=== PATIENT | male | born 1960 | race Caucasian/White ===

== ENCOUNTER → 2019-06-03 12:20 | Outpatient (CLI) | payer OTHER, SELFPAY ==
--- NOTE | 2019-06-03 | DI.RAD.S_ITS ---
PROCEDURE: XR CERVICAL SPINE 2V OR 3V INDICATIONS: CERVICAL RADICULOPATHY TECHNIQUE: 3 view(s) of the cervical spine were acquired. COMPARISON: None. FINDINGS: Bones: No fractures or dislocations to the T1 level. The lateral masses of C1 appear intact on the odontoid view. No suspicious bony lesions. No acute compression fracture. Degenerative changes noted in the mid and lower cervical spine with disc space loss at C5-6 and C6-7 with associated endplate osteophyte formation. Mild bilateral facet arthrosis. Soft tissues: No prevertebral soft tissue swelling. IMPRESSION: Cervical spine without acute osseous abnormalities. Multilevel cervical spondylosis most pronounced in the mid and lower cervical spine. Dictated by: Elliott Medina M.D. on 06/03/2019 at 17:56 Approved by: Elliott Medina M.D. on 06/03/2019 at 17:58
== END ==
PROVIDERS: PCP Internal Medicine; Visit Provider Internal Medicine
DX: M47.22 Other spondylosis with radiculopathy, cervical region (principal)
CPT/HCPCS: 72040

== ENCOUNTER → 2019-07-09 17:34 | Outpatient (CLI) | payer OTHER, SELFPAY ==
--- NOTE | 2019-07-09 | DI.MRI.S_ITS ---
PROCEDURE: MR CERVICAL SPINE WO CON INDICATIONS: Neck pain. Left shoulder and arm radicular pain TECHNIQUE: Noncontrast sagittal T1 spin echo and T2 fast spin echo, sagittal STIR, foraminal oblique sagittal T2 fast spin echo, and axial gradient echo or T2 fast spin echo through the cervical spine. COMPARISON: [facility], CR, XR CERVICAL SPINE 2V OR 3V, 06/03/2019, 12:27. FINDINGS: Image quality: Excellent. Alignment and Curvature: There is loss of normal cervical lordosis. There is mild grade 1 anterolisthesis of C2 on C3. Mild grade 1 retrolisthesis of C3 on C4. Bone Marrow: Marrow demonstrates normal overall signal. Mild reactive signal within the endplates adjacent to the C3-C4, C4-C5, C5-C6, and C6-C7 intervertebral discs. Spinal Cord: Visualized spinal cord has normal size. There is a 2 mm diameter high T2 intensity focus within the central substance of the cord extending from the C5-C6 disc space level inferiorly to the superior C7 level. No cerebellar tonsillar herniation. Paraspinous Soft Tissues: No paravertebral masses. Prevertebral soft tissues are normal in thickness. C2-C3: Moderate disc desiccation. Mild diffuse disc bulge. Mild facet hypertrophy bilaterally. Mild left foraminal stenosis. No right foraminal stenosis. No canal stenosis. C3-C4: Moderate disc desiccation. Mild diffuse disc bulge. Mild facet and uncovertebral hypertrophy bilaterally. Mild canal stenosis. Moderate bilateral foraminal stenosis. C4-C5: Moderate disc desiccation. Mild diffuse disc bulge. Mild facet and uncovertebral hypertrophy bilaterally. Moderate to severe canal stenosis. Severe bilateral foraminal stenosis. Bilateral C5 nerve root compression. C5-C6: Moderate disc height loss and desiccation. Mild diffuse disc bulge. Mild facet and uncovertebral hypertrophy bilaterally. Moderate to severe canal stenosis. Minimal anterior cord flattening. Severe bilateral foraminal stenosis. Bilateral C6 nerve root compression. C6-C7: Moderate disc desiccation. Mild disc height loss. Moderate diffuse disc bulge. Mild bilateral facet and uncovertebral hypertrophy. Severe canal stenosis. Mild cord flattening. Severe left greater than right foraminal stenosis. Bilateral C7 nerve root compression. C7-T1: Disc desiccation. Bilateral mild facet hypertrophy. No significant canal stenosis. Mild bilateral foraminal stenosis. IMPRESSION: 1. Multilevel degenerative disc and facet disease, as well as uncovertebral hypertrophy. 2. Multilevel canal stenoses, worst at C5-C6 and C6-C7, where there is mild cord flattening. 3. Multilevel foraminal stenoses, worst at C4-C5, C5-C6, and C6-C7, where there is associated intraforaminal nerve root compression. Recommend correlation with clinical symptoms to ascertain relevance of this finding. 4. Small syrinx within the lower cervical cord. Dictated by: Zaina Larose M.D. on 07/10/2019 at 8:44 Approved by: Zaina Larose M.D. on 07/10/2019 at 8:53
== END ==
PROVIDERS: PCP Internal Medicine; Visit Provider Internal Medicine
DX: M50.11 Cervical disc disorder with radiculopathy, high cervical region (principal); M48.02 Spinal stenosis, cervical region
CPT/HCPCS: 72141

== ENCOUNTER → 2020-09-09 18:43 | Outpatient (ROUT) | payer OTHER, SELFPAY ==
[2020-09-09 18:59] LABS: Add Manual Diff / Slide Review NO; Basophils Absolute Auto 0 /uL (0-100); Basophils Percent Auto 0.6 % (0-2); Eosinophils Absolute Auto 100 /uL (0-450); Eosinophils Percent Auto 2.7 % (2-4); Hematocrit 45.7 % (41-53); Hemoglobin 15.5 g/dL (13.5-17.5); Lymphocytes Absolute Auto 700 /uL (1100-4500); Lymphocytes Percent Auto 19.1 % (25-40); Mean Corpuscular Hemoglobin 32.1 PG (26-34); Mean Corpuscular Volume 94.5 fL (80-100); Monocytes Absolute Auto 300 /uL (0-900); Monocytes Percent Auto 7.6 % (3-14); Neutrophils Absolute Auto 2700 /uL (1500-7000); Platelet Count 218 X10^3/uL (150-400); Red Blood Cell Count 4.84 X10^6/uL (4.5-5.9); Red Cell Distribution Width 13.5 % (11.6-14.8); White Blood Cell Count 3.9 X10^3/uL (4.5-11.0)
[2020-09-09 19:20] LABS: Alanine Aminotransferase 33 IU/L (<50); Albumin 4.6 g/dL (3.5-5.0); Albumin Globulin Ratio 1.8 (1.0-2.8); Alkaline Phosphatase 67 U/L (38-126); Aspartate Aminotransferase 31 IU/L (17-59); BUN Creatinine Ratio 20.7 (6-22); Bilirubin Total 0.5 mg/dL (0.2-1.3); Blood Urea Nitrogen 24 mg/dL (9-20); Calcium 10.1 mg/dL (8.4-10.2); Carbon Dioxide 30 mmol/L (22-32); Chloride 104 mmol/L (98-107); Cholesterol 181 mg/dL (140-199); Estimated Glomerular Filt Rate > 60.0 mL/min (>60); Globulin 2.6 g/dL (1.7-4.1); Glucose 91 mg/dL (80-110); HDL Cholesterol 96 mg/dL (40-60); HEMOLYSIS < 15 (0-50); LDL Cholesterol Calculated 65 mg/dL (<100); Potassium 4.1 mmol/L (3.4-5.1); Sodium 140 mmol/L (137-145); Total Protein 7.2 g/dL (6.3-8.2); Triglycerides 98 mg/dL (35-150)
[2020-09-09 19:49] LABS: Prostate Specific Antigen 1.41 ng/mL (0.10-4.00); TSH w/ Reflex to FT4 2.06 uIU/mL (0.47-4.68)
== END ==
PROVIDERS: PCP Internal Medicine; Visit Provider Internal Medicine
DX: Z00.00 Encounter for general adult medical examination without abnormal findings (principal); E03.9 Hypothyroidism, unspecified; R53.83 Other fatigue
CPT/HCPCS: 80053; 80061; 84153; 84443; 85025

== ENCOUNTER 2020-10-26 08:40 | Emergency (ER) | payer OTHER, SELFPAY ==
[2020-10-26 08:43] VITALS: BP 134/80; PULSE 75; RESP 16; TEMP 35.8; O2SAT 97
--- NOTE | 2020-10-26 08:45 | DI.CT.S_ITS ---
PROCEDURE: CT KIDNEY URETER BLADDER (KUB) INDICATIONS: left flank TECHNIQUE: Noncontrast 5 mm thick sections acquired from the diaphragms to the symphysis. 5 mm thick coronal and sagittal reformats were then performed. For radiation dose reduction, the following was used: automated exposure control, adjustment of mA and/or kV according to patient size. COMPARISON: 3. Appendix [facility], CT, ABDOMEN/PELVIS WITH CONTRAST, 06/13/2009, 9:09. t FINDINGS: Image quality: Excellent. Lung bases: Lung bases are clear. Heart size is normal. Urinary system: Both kidneys are normal in size. No kidney stones. No hydronephrosis or perinephric fat stranding. Both ureters appear non-dilated throughout their expected courses. Bladder wall thickness is normal; no calcified bladder stones. Other solid organs: Liver is normal in size. Gallbladder is within normal limits on noncontrast imaging . Pancreas is normal in contours. Spleen is normal in size. No adrenal nodules. Peritoneum and bowel: Unenhanced bowel loops demonstrate normal wall thickness and caliber. No free fluid or air. Appendix not seen. No evidence of appendicitis. Nodes and vessels: No retroperitoneal or mesenteric adenopathy by size criteria. Mildly prominent mesenteric lymph nodes are present. Aorta and inferior vena cava are normal in caliber. Abdominal wall: No ventral hernias. Pelvis: No free pelvic fluid. No inguinal hernias or adenopathy. Bones: No suspicious bony lesions. No vertebral body compression fractures. IMPRESSION: 1. No evidence of urinary tract calcification, nor obstruction. 2. Mildly prominent mesenteric lymph nodes, suggestive of mesenteric adenitis in the appropriate clinical setting. 3. Appendix not seen. No evidence of appendicitis. Dictated by: Zaina Larose M.D. on 10/26/2020 at 9:57 Approved by: Zaina Larose M.D. on 10/26/2020 at 10:00
--- NOTE | 2020-10-26 08:57 | ED_ITS ---
HPI - Back Pain/Injury General Chief Complaint: Back Pain/Injury Stated Complaint: Back pain Time Seen by Provider: 10/26/20 08:45 Source: patient and EMS Mode of arrival: EMS Limitations: no limitations History of Present Illness HPI Narrative: Patient is a 60-year-old male who presents with left flank pain. He has been having some thoracic pain off and on for about 2 months she has had MRIs done he has had a dull left lower lumbar pain but this morning it became unbearable. It is actually in his flank area and occasionally radiates to his abdomen. He said this morning he was in tears. He has previously had some numbness tingling in his left leg but does not have currently. He denies any change in bowel bladder habits. He checks his temperature regularly he denies any fever. He has not noted any blood in his urine. MD Complaint: back pain Location: lumbar spine and thoracic spine Related Data Home Medications Medication Instructions Recorded Confirmed levothyroxine 88 mcg PO QAM 10/26/20 10/26/20 Previous Rx's Medication Instructions Recorded cyclobenzaprine 5 mg PO TID PRN #10 tab 10/26/20 Allergies Allergy/AdvReac Type Severity Reaction Status Date / Time No Known Drug Allergies Allergy Verified 10/26/20 09:21 Review of Systems Review of Systems Narrative: GENERAL: Denies chills, fatigue, malaise, fever, sweats, travel HEENT: Denies sinus pain, ear pain, sore throat, difficulty swallowing, neck mariola n RESPIRATORY: Denies dyspnea, cough, wheezing, hemoptysis, sputum. CARDIOVASCULAR: Denies chest pain, palpitations, orthopnea, edema GASTROINTESTINAL: Denies nausea, vomiting, abdominal pain, diarrhea, constipation, melena. : Denies dysuria, frequency, incontinence, hematuria, urinary retention, flank pain. MUSCULOSKELETAL: Leg see HPI SKIN: No rash, no erythema, no pruritus NEUROLOGIC: Denies weakness, dizziness, headache, numbness, change in speech, confusion PSYCHIATRIC: No concerning psychosocial issues. 12 point review of systems is negative except for those stated above and HPI Patient History Medical History Hypothyroid Exam Initial Vital Signs Initial Vital Signs: Vital Signs Temperature 96.5 F L 10/26/20 08:43 Pulse Rate 75 10/26/20 08:43 Respiratory Rate 16 10/26/20 08:43 Blood Pressure 134/80 10/26/20 08:43 Pulse Oximetry 97 10/26/20 08:43 GENERAL: Well-appearing, well-nourished and in no acute distress. HEENT: Head atraumatic,EOMI, pupils reactive, face symmetric, moist mucous membranes CARDIOVASCULAR: Regular rate and rhythm without murmurs, rubs or gallops. RESPIRATORY: Breath sounds equal bilaterally, no wheezes rales or rhonchi. ABDOMEN: Soft, nontender. Normoactive bowel sounds all 4 quadrants. No guarding or rebound. : left CVA tenderness EXTREMITIES: Normal range of motion, no clubbing or edema. Neurovascularly intact NEUROLOGICAL: Alert and oriented x4. Sensation in lower extremities intact no focal deficits SKIN: Warm, dry, no laceration, no petechiae, no rashes or lesions. Course Orders Ordered: ED Orders 10/26/20 08:45 CT kidney ureter bladder (KUB) Stat 10/26/20 09:00 Complete Blood Count AUTO DIFF Stat Comprehensive Metabolic Panel Stat Lipase Stat Discontinued Medications Cyclobenzaprine HCl (Cyclobenzaprine 5 Mg Tablet) 5 mg PO NOW ONE Stop: 10/26/20 10:29 Last Admin: 10/26/20 10:35 Dose: 5 mg Documented by: DELON Ketorolac Tromethamine (Ketorolac 60 Mg/2 Ml Vial) 30 mg IV NOW ONE Stop: 10/26/20 08:46 Last Admin: 10/26/20 09:05 Dose: 30 mg Documented by: ELENA Morphine Sulfate (Morphine 2 Mg/Ml Inj) 2 mg IV NOW ONE Stop: 10/26/20 10:30 Last Admin: 10/26/20 10:35 Dose: 2 mg Documented by: BTONER Vital Signs Vital signs: Vital Signs - 8 hr 10/26/20 08:43 10/26/20 09:09 10/26/20 09:30 Temperature 96.5 F L Pulse Rate 75 64 63 Respiratory Rate 16 Blood Pressure 134/80 Pulse Oximetry 97 100 100 10/26/20 09:52 10/26/20 10:00 10/26/20 11:17 Temperature Pulse Rate 62 63 61 Respiratory Rate 20 20 Blood Pressure 145/63 H 129/63 143/74 H Pulse Oximetry 100 100 100 MDM - Back Pain/Injury Lab Data Attestation: I reviewed the patient's lab results. Result diagrams: 10/26/20 09:00 10/26/20 09:00 Labs: Lab Results 10/26/20 10/26/20 Range/Units 09:00 09:00 WBC 3.1 L (4.5-11.0) X10^3/uL RBC 5.01 (4.5-5.9) X10^6/uL Hgb 16.4 (13.5-17.5) g/dL Hct 46.3 (41-53) % MCV 92.5 (80-100) fL MCH 32.8 (26-34) PG MCHC 35.4 (30-36) % RDW 13.4 (11.6-14.8) % Plt Count 198 (150-400) X10^3/uL Neut % (Auto) 59.5 (50-75) % Lymph % (Auto) 25.5 (25-40) % Dougherty % (Auto) 9.9 (3-14) % Eos % (Auto) 3.9 (2-4) % Baso % (Auto) 1.2 (0-2) % Neut # (Auto) 1800 (4123-6740) /uL Lymph # (Auto) 800 L (4009-3609) /uL Dougherty # (Auto) 300 (0-900) /uL Eos # (Auto) 100 (0-450) /uL Baso # (Auto) 0 (0-100) /uL Sodium 138 (137-145) mmol/L Potassium 3.7 (3.4-5.1) mmol/L Chloride 106 (98-107) mmol/L Carbon Dioxide 25 (22-32) mmol/L BUN 26 H (9-20) mg/dL Creatinine 1.29 H (0.66-1.25) mg/dL Estimated GFR 56.6 L (>60) mL/min BUN/Creatinine Ratio 20.2 (6-22) Glucose 109 (80-110) mg/dL Calcium 10.1 (8.4-10.2) mg/dL Total Bilirubin 0.6 (0.2-1.3) mg/dL AST 34 (17-59) IU/L ALT 37 (<50) IU/L Alkaline Phosphatase 63 (38-126) U/L Total Protein 7.3 (6.3-8.2) g/dL Albumin 4.6 (3.5-5.0) g/dL Globulin 2.7 (1.7-4.1) g/dL Albumin/Globulin Ratio 1.7 (1.0-2.8) Lipase 292 (23-300) U/L Urine Dip Bedside Urine Glucose Negative Bedside Urine Bilirubin - Negative Bedside Urine Ketone - Negative Urine Specific [place] 1.015 Bedside Urine Occult Blood - Negative Bedside Urine pH 8.0 Bedside Urine Protein - Negative Bedside Urine Urobilinogen - Negative Bedside Urine Nitrite - Negative Bedside Urine Leukocytes - Negative Esterase Imaging Data CT scan - abdomen/pelvis: Radiologist's Impression: PROCEDURE: CT KIDNEY URETER BLADDER (KUB) INDICATIONS: left flank TECHNIQUE: Noncontrast 5 mm thick sections acquired from the diaphragms to the symphysis. 5 mm thick coronal and sagittal reformats were then performed. For radiation dose reduction, the following was used: automated exposure control, adjustment of mA and/or kV according to patient size. COMPARISON: 3. [facility], CT, ABDOMEN/PELVIS WITH CONTRAST, 06/13/2009, 9:09. t FINDINGS: Image quality: Excellent. Lung bases: Lung bases are clear. Heart size is normal. Urinary system: Both kidneys are normal in size. No kidney stones. No hydronephrosis or perinephric fat stranding. Both ureters appear non-dilated throughout their expected courses. Bladder wall thickness is normal; no calcified bladder stones. Other solid organs: Liver is normal in size. Gallbladder is within normal limits on noncontrast imaging . Pancreas is normal in contours. Spleen is normal in size. No adrenal nodules. Peritoneum and bowel: Unenhanced bowel loops demonstrate normal wall thickness and caliber. No free fluid or air. Appendix not seen. No evidence of obed endicitis. Nodes and vessels: No retroperitoneal or mesenteric adenopathy by size criteria. Mildly prominent mesenteric lymph nodes are present. Aorta and inferior vena cava are normal in caliber. Abdominal wall: No ventral hernias. Pelvis: No free pelvic fluid. No inguinal hernias or adenopathy. Bones: No suspicious bony lesions. No vertebral body compression fractures. IMPRESSION: 1. No evidence of urinary tract calcification, nor obstruction. 2. Mildly prominent mesenteric lymph nodes, suggestive of mesenteric adenitis in the appropriate clinical setting. 3. Appendix not seen. No evidence of appendicitis. Dictated by: Zaina Larose M.D. on 10/26/2020 at 9:57 MDM Narrative Medical decision making narrative: Initially patient has some left flank pain concern for possible kidney stone versus muscle spasm. Pain does seem to be worse with movement. Blood was given CT confirm no kidney stone. Patient has been having ongoing low back pain is which seems to be exacerbated worse with movement consistent with muscle spasm. Patient was still having pain after Toradol. He is given a dose of Flexeril and morphine at which point he is able to stand and ambulate out of the emergenc y department. Discharge Plan Departure Patient Disposition: Home Clinical Impression: Acute exacerbation of chronic low back pain Instructions: DI for Low Back Pain Activity Restrictions/Additional Instructions: *You have been diagnosed with low back pain *What to do: Increase activity as tolerated recommend light activity with stretching. No strenuous activity or heavy lifting. Heating pad to 20 a 30 minutes at a time *Continue to take medications as directed Ibuprofen 600 mg every 6 to 8 hours if needed for [id number] pain Flexeril 5 mg every 8 hours if needed for muscle spasm--> SENT TO [facility] *Follow up with your primary care provider in 2-3 days *Return to ER if you should have increasing back pain, weakness in lower extremities, change in bowel or bladder habits or any new, worsening or concerning symptoms Prescriptions: New cyclobenzaprine 5 mg tablet 5 mg PO TID PRN (Reason: muscle spasm) Qty: 10 RF: 0 No Action levothyroxine 88 mcg tablet 88 mcg PO QAM RF: 0 Referrals: Cristian Freire MD [Primary Care Provider] -
[2020-10-26] MEDS: KETOROLAC 60 MG/2 ML VIAL 30 MG IV (09:05)
[2020-10-26 09:09] VITALS: PULSE 64; O2SAT 100
[2020-10-26 09:11] LABS: Add Manual Diff / Slide Review NO; Basophils Absolute Auto 0 /uL (0-100); Basophils Percent Auto 1.2 % (0-2); Eosinophils Absolute Auto 100 /uL (0-450); Eosinophils Percent Auto 3.9 % (2-4); Hematocrit 46.3 % (41-53); Hemoglobin 16.4 g/dL (13.5-17.5); Lymphocytes Absolute Auto 800 /uL (1100-4500); Lymphocytes Percent Auto 25.5 % (25-40); Mean Corpuscular HGB Conc 35.4 % (30-36); Mean Corpuscular Hemoglobin 32.8 PG (26-34); Mean Corpuscular Volume 92.5 fL (80-100); Monocytes Absolute Auto 300 /uL (0-900); Monocytes Percent Auto 9.9 % (3-14); Neutrophils Absolute Auto 1800 /uL (1500-7000); Neutrophils Percent Auto 59.5 % (50-75); Platelet Count 198 X10^3/uL (150-400); Red Blood Cell Count 5.01 X10^6/uL (4.5-5.9); Red Cell Distribution Width 13.4 % (11.6-14.8); White Blood Cell Count 3.1 X10^3/uL (4.5-11.0)
[2020-10-26 09:22] LABS: Alanine Aminotransferase 37 IU/L (<50); Albumin 4.6 g/dL (3.5-5.0); Albumin Globulin Ratio 1.7 (1.0-2.8); Alkaline Phosphatase 63 U/L (38-126); Aspartate Aminotransferase 34 IU/L (17-59); BUN Creatinine Ratio 20.2 (6-22); Bilirubin Total 0.6 mg/dL (0.2-1.3); Blood Urea Nitrogen 26 mg/dL (9-20); Calcium 10.1 mg/dL (8.4-10.2); Carbon Dioxide 25 mmol/L (22-32); Chloride 106 mmol/L (98-107); Estimated Glomerular Filt Rate 56.6 mL/min (>60); Globulin 2.7 g/dL (1.7-4.1); Glucose 109 mg/dL (80-110); HEMOLYSIS < 15 (0-50); Lipase 292 U/L (23-300); Potassium 3.7 mmol/L (3.4-5.1); Sodium 138 mmol/L (137-145); Total Protein 7.3 g/dL (6.3-8.2)
[2020-10-26 09:30] VITALS: PULSE 63; O2SAT 100
[2020-10-26 09:52] VITALS: BP 145/63; PULSE 62; O2SAT 100
[2020-10-26 10:00] VITALS: BP 129/63; PULSE 63; RESP 20; O2SAT 100
--- NOTE | 2020-10-26 10:29 | PC.NURSE ---
pt attempted to stand. pt did get up to his feet. pt immediately sat back down, states he doesn't think can walk because standing is painful. reported to dr. hernandez, orders rec'd and noted.
[2020-10-26] MEDS: MORPHINE 2 MG/ML INJ IV (10:35)
[2020-10-26] MEDS: CYCLOBENZAPRINE 5 MG TABLET PO (10:35)
[2020-10-26 11:17] VITALS: BP 143/74; PULSE 61; RESP 20; O2SAT 100
== END 2020-10-26 11:20 | disposition home or self-care (01) ==
PROVIDERS: Emergency Provider Emergency Medicine; PCP Internal Medicine; Referring Provider Emergency Medicine
DX: M54.5 Low back pain (principal); E03.9 Hypothyroidism, unspecified
CPT/HCPCS: 36415; 74176; 80053; 81003; 83690; 85025; 96374; 96375; 99283; 99284; J1885; J2270

== ENCOUNTER → 2021-08-11 08:35 | Outpatient (CLI) | payer OTHER, SELFPAY ==
--- NOTE | 2021-08-11 08:36 | DI.RAD.S_ITS ---
PROCEDURE: XR KNEE RT 3V INDICATIONS: right knee pain TECHNIQUE: 3 views of the knee were acquired. COMPARISON: None. FINDINGS: Bones: No fractures or dislocations. No suspicious bony lesions. Soft tissues: No joint effusion. No suspicious soft tissue calcifications. IMPRESSION: No acute fracture. No osseous lesion. If symptoms and/or clinical suspicion for pathology persist, further assessment with repeat, or advanced imaging (e.g., CT, MRI, or bone scan) may be helpful for further assessment. Dictated by: Zaina Larose M.D. on 08/11/2021 at 8:44 Approved by: Zaina Larose M.D. on 08/11/2021 at 8:50
== END ==
PROVIDERS: PCP Internal Medicine; Referring Provider Physician Assistant; Visit Provider Physician Assistant
DX: M25.561 Pain in right knee (principal)
CPT/HCPCS: 73562

== ENCOUNTER → 2021-08-30 09:45 | Outpatient (CLI) | payer OTHER, SELFPAY ==
--- NOTE | 2021-08-30 | DI.MRI.S_ITS ---
PROCEDURE: MR KNEE RT WO CON INDICATIONS: Unspecified injury of right lower leg, initial encounter TECHNIQUE: Noncontrast sagittal PD fast spin echo and T2 fast spin echo with fat saturation, sagittal 3-D FLASH with fat saturation; coronal T1 spin echo and PD fast spin echo with fat saturation, and axial PD fast spin echo with fat saturation through the knee. COMPARISON: [facility], CR, XR KNEE RT 3V, 08/11/2021, 8:30. FINDINGS: Image quality: Excellent. Menisci: The medial meniscus is intact. There is complex tear involving anterior horn, body and posterior horn of lateral meniscus extending to both superior and inferior articulating surfaces. The meniscal root ligaments appear intact. Cruciate ligaments: The anterior and posterior cruciate ligaments appear intact. Medial structures: The medial collateral ligament appears intact. The posterior oblique ligament, semimembranosus tendon insertions, oblique popliteal ligament, and meniscocapsular junction appear intact. Visualized portions of the pes anserinus tendons appear normal. No abnormal bursal fluid. Lateral structures: Low-grade proximal LCL sprain/partial-thickness tear near its femoral insertion is seen. The long and short heads of the biceps femoris tendon appear intact. There is signal abnormality involving lateral portion of proximal popliteus muscle near musculotendinous junction concerning for low-grade partial-thickness tear. The arcuate and fabellofibular ligaments appear intact, on either side of the lateral inferior geniculate artery. Iliotibial band appears normal. Anterior structures: The quadriceps and patellar tendons appear intact. Patellar alignment is normal. No femoral trochlear dysplasia or ventral trochlear prominence. No edema in the infrapatellar fat pad. Bones and cartilage: No bone marrow contusions or fractures. Mild tricompartmental osteoarthritis and low to moderate grade chondromalacia is seen most prominent involving patellofemoral compartment with small osteochondral injuries seen in lateral aspect of posterior patella near apex. Joint space: There is small to moderate joint effusion. No Moraes's cyst. Normal appearing synovial plicae are incidentally noted. IMPRESSION: 1. Suggestion of complex tear involving anterior horn, body and posterior horn of lateral meniscus extending to both superior and inferior articulating surfaces. No evidence of focal medial meniscal tear. 2. Low-grade lateral collateral ligament sprain near its femoral insertion. MCL is intact. Anterior and posterior cruciate ligaments are intact. 3. Mild tricompartmental osteoarthritis and low to moderate grade chondromalacia most prominent involving patellofemoral compartment as above. No fracture or dislocation. Small to moderate joint effusion. 4. Signal abnormality involving lateral periphery of proximal popliteus muscle near musculotendinous junction concerning for low-grade partial-thickness tear. Popliteus tendon is intact. Dictated by: Joseluis Varela M.D. on 08/30/2021 at 10:23 Approved by: Joseluis Varela M.D. on 08/30/2021 at 10:46
== END ==
PROVIDERS: PCP Internal Medicine; Referring Provider Internal Medicine; Visit Provider Internal Medicine
DX: S83.281A Other tear of lateral meniscus, current injury, right knee, initial encounter (principal); S83.421A Sprain of lateral collateral ligament of right knee, initial encounter; M17.11 Unilateral primary osteoarthritis, right knee; M22.41 Chondromalacia patellae, right knee; M25.461 Effusion, right knee; X58.XXXA Exposure to other specified factors, initial encounter
CPT/HCPCS: 73721

== ENCOUNTER → 2022-08-06 12:28 | Outpatient (CLI) | payer OTHER, SELFPAY ==
[2022-08-06 14:04] LABS: Hematocrit 44.2 % (41-53); Hemoglobin 15.2 g/dL (13.5-17.5); Mean Corpuscular HGB Conc 34.4 % (30-36); Mean Corpuscular Hemoglobin 32.2 PG (26-34); Mean Corpuscular Volume 93.6 fL (80-100); Platelet Count 237 X10^3/uL (150-400); Red Blood Cell Count 4.72 X10^6/uL (4.5-5.9); Red Cell Distribution Width 13.2 % (11.6-14.8); White Blood Cell Count 3.4 X10^3/uL (4.5-11.0)
[2022-08-06 14:18] LABS: Alanine Aminotransferase 42 IU/L (<50); Albumin 4.6 g/dL (3.5-5.0); Albumin Globulin Ratio 1.6 (1.0-2.8); Alkaline Phosphatase 66 U/L (38-126); Aspartate Aminotransferase 29 IU/L (17-59); BUN Creatinine Ratio 16.2 (6-22); Bilirubin Total 0.6 mg/dL (0.2-1.3); Blood Urea Nitrogen 19 mg/dL (9-20); Calcium 9.5 mg/dL (8.4-10.2); Carbon Dioxide 29 mmol/L (22-32); Chloride 103 mmol/L (98-107); Cholesterol 169 mg/dL (140-199); Estimated Glomerular Filt Rate > 60 mL/min (>60); Globulin 2.9 g/dL (1.7-4.1); Glucose 102 mg/dL (80-110); HDL Cholesterol 65 mg/dL (40-60); HEMOLYSIS < 15 (0-50); LDL Cholesterol Calculated 93 mg/dL (<100); Potassium 4.3 mmol/L (3.4-5.1); Sodium 140 mmol/L (137-145); Total Protein 7.5 g/dL (6.3-8.2); Triglycerides 54 mg/dL (35-150)
[2022-08-06 14:43] LABS: Prostate Specific Antigen 1.43 ng/mL (0.10-4.00)
[2022-08-06 15:04] LABS: TSH w/ Reflex to FT4 1.43 uIU/mL (0.47-4.68)
== END ==
PROVIDERS: PCP Internal Medicine; Referring Provider Internal Medicine; Visit Provider Internal Medicine
DX: Z00.00 Encounter for general adult medical examination without abnormal findings (principal); E03.9 Hypothyroidism, unspecified; E78.2 Mixed hyperlipidemia
CPT/HCPCS: 36415; 80053; 80061; 84153; 84443; 85027

== ENCOUNTER → 2023-09-19 08:39 | Outpatient (CLI) | payer OTHER, SELFPAY ==
[2023-09-19 09:52] LABS: Aspartate Aminotransferase 33 IU/L (17-59); Blood Urea Nitrogen 26 mg/dL (9-20); Carbon Dioxide 29 mmol/L (22-32); Chloride 102 mmol/L (98-107); Cholesterol 192 mg/dL (140-199); Estimated Glomerular Filt Rate > 60 mL/min (>60); Glucose 101 mg/dL (80-110); HDL Cholesterol 76 mg/dL (40-60); HEMOLYSIS < 15 (0-50); LDL Cholesterol Calculated 104 mg/dL (<100); Potassium 4.3 mmol/L (3.4-5.1); Sodium 137 mmol/L (137-145); Triglycerides 62 mg/dL (35-150)
[2023-09-19 10:22] LABS: Prostate Specific Antigen Scrn 1.49 ng/mL (0.1-4.0)
[2023-09-19 10:25] LABS: TSH w/ Reflex to FT4 4.37 uIU/mL (0.47-4.68)
== END ==
PROVIDERS: PCP Internal Medicine; Referring Provider Internal Medicine; Visit Provider Internal Medicine
DX: Z12.5 Encounter for screening for malignant neoplasm of prostate (principal); E78.2 Mixed hyperlipidemia; E03.9 Hypothyroidism, unspecified
CPT/HCPCS: 36415; 80048; 80061; 84443; 84450; G0103

== ENCOUNTER → 2023-10-02 10:05 | Outpatient (CLI) | payer OTHER, SELFPAY ==
--- NOTE | 2023-10-02 10:09 | DI.CT.S_ITS ---
PROCEDURE: CT HEAD/BRAIN WO/W CON INDICATIONS: right upper lip paresthesia, rule out mass/neoplasm TECHNIQUE: 4.5 mm thick angled axial sections acquired from the foramen magnum to the vertex before and after the administration of intravenous contrast, with coronal and sagittal reformats. For radiation dose reduction, the following was used: automated exposure control, adjustment of mA and/or kV according to patient size. COMPARISON: [facility], MR, MR BRAIN WITHOUT CONTRAST, 06/01/2020, 16:09. FINDINGS: Image quality: Excellent. CSF Spaces: Basal cisterns are patent. No extra-axial fluid collections. Ventricles are normal in size and shape. Brain: No midline shift. No intracranial bleeds or masses. No abnormal intracranial enhancement. Devlin-white interface appears normal. Skull and face: Calvarium and visualized facial bones appear intact, without suspicious lesions. Sinuses: Visualized sinuses and mastoids are clear. IMPRESSION: No acute intracranial abnormalities. No abnormal intracranial enhancement or masses identified. Dictated by: Harris Car M.D. on 10/02/2023 at 12:51 Approved by: Harris Car M.D. on 10/02/2023 at 12:54
== END ==
LOC: CT 10:06
PROVIDERS: PCP Internal Medicine; Referring Provider Internal Medicine; Visit Provider Internal Medicine
DX: D32.9 Benign neoplasm of meninges, unspecified (principal); R20.2 Paresthesia of skin
CPT/HCPCS: 70470; Q9967

== ENCOUNTER → 2024-10-07 09:08 | Outpatient (CLI) | payer MEDICARE, SELFPAY ==
[2024-10-07 09:53] LABS: Aspartate Aminotransferase 35 IU/L (17-59); BUN Creatinine Ratio 20.1 (6-22); Blood Urea Nitrogen 27 mg/dL (9-20); Carbon Dioxide 29 mmol/L (22-32); Chloride 104 mmol/L (98-107); Cholesterol 191 mg/dL (140-199); Estimated Glomerular Filt Rate 59 mL/min (>60); Glucose 100 mg/dL (80-110); HDL Cholesterol 78 mg/dL (40-60); HEMOLYSIS < 15 (0-50); LDL Cholesterol Calculated 99 mg/dL (<100); Sodium 138 mmol/L (137-145); Triglycerides 69 mg/dL (35-150)
[2024-10-07 10:20] LABS: Prostate Specific Antigen 1.64 ng/mL (0.10-4.00); TSH w/ Reflex to FT4 2.73 uIU/mL (0.47-4.68)
== END ==
PROVIDERS: PCP Internal Medicine; Referring Provider Internal Medicine; Visit Provider Internal Medicine
DX: E03.9 Hypothyroidism, unspecified (principal); N40.1 Benign prostatic hyperplasia with lower urinary tract symptoms; E78.2 Mixed hyperlipidemia; N13.8 Other obstructive and reflux uropathy
CPT/HCPCS: 36415; 80048; 80061; 84153; 84443; 84450

== ENCOUNTER → 2024-12-24 15:29 | Outpatient (CLI) | payer MEDICARE, SELFPAY ==
[2024-12-24 16:22] LABS: Appearance Urine UA CLEAR; Bilirubin Urine UA NEGATIVE (NEGATIVE); Color Urine UA YELLOW; Glucose Urine UA NEGATIVE (Negative); Ketones Urine UA NEGATIVE (NEGATIVE); Leukocyte Esterase Urine UA NEGATIVE (NEGATIVE); Nitrite Urine UA NEGATIVE (Negative); Occult Blood Urine UA NEGATIVE (Negative); Protein Urine UA NEGATIVE (Negative); Specific Gravity Urine UA <=1.005 (1.000-1.035); Urobilinogen Urine UA 0.2 E.U./dL (0.2); pH Urine UA 6.5 (4.5-8.0)
[2024-12-24 16:22] LABS: Hematocrit 43.2 % (41-53); Mean Corpuscular HGB Conc 34.7 % (30-36); Mean Corpuscular Hemoglobin 32.4 PG (26-34); Mean Corpuscular Volume 93.6 fL (80-100); Platelet Count 190 X10^3/uL (150-400); Red Blood Cell Count 4.62 X10^6/uL (4.5-5.9); Red Cell Distribution Width 13.7 % (11.6-14.8)
[2024-12-24 16:29] LABS: Urine Volume 10mL (spun)
[2024-12-24 16:30] LABS: Bacteria Urine Occasional (0-1); Culture Indicated Urine Cult Not Indicated; RBC Urine None Seen (0-5/HPF); Squamous Epithelial Cell Urine None Seen (0-5/HPF); WBC Urine None Seen (0-5/HPF)
[2024-12-24 16:49] LABS: Alanine Aminotransferase 31 IU/L (<50); Albumin 4.7 g/dL (3.5-5.0); Alkaline Phosphatase 60 U/L (38-126); Aspartate Aminotransferase 30 IU/L (17-59); BUN Creatinine Ratio 16.5 (6-22); Bilirubin Total 0.6 mg/dL (0.2-1.3); Blood Urea Nitrogen 23 mg/dL (9-20); Calcium 10.1 mg/dL (8.4-10.2); Carbon Dioxide 28 mmol/L (22-32); Chloride 102 mmol/L (98-107); Estimated Glomerular Filt Rate 56 mL/min (>60); Globulin 2.4 g/dL (1.7-4.1); Glucose 101 mg/dL (80-110); HEMOLYSIS < 15 (0-50); Potassium 4.7 mmol/L (3.4-5.1); Sodium 138 mmol/L (137-145); Total Protein 7.1 g/dL (6.3-8.2)
== END ==
PROVIDERS: PCP Internal Medicine; Referring Provider Internal Medicine; Visit Provider Internal Medicine
DX: R10.32 Left lower quadrant pain (principal)
CPT/HCPCS: 36415; 80053; 81001; 85027

== ENCOUNTER → 2025-01-25 09:12 | Outpatient (CLI) | payer MEDICARE, SELFPAY ==
[2025-01-25 10:29] LABS: Hematocrit 46.2 % (41-53); Hemoglobin 15.8 g/dL (13.5-17.5); Mean Corpuscular HGB Conc 34.3 % (30-36); Mean Corpuscular Hemoglobin 32.5 PG (26-34); Mean Corpuscular Volume 94.9 fL (80-100); Platelet Count 177 X10^3/uL (150-400); Red Blood Cell Count 4.86 X10^6/uL (4.5-5.9); Red Cell Distribution Width 13.9 % (11.6-14.8); White Blood Cell Count 2.7 X10^3/uL (4.5-11.0)
[2025-01-25 10:46] LABS: Alanine Aminotransferase 47 IU/L (<50); Albumin 4.8 g/dL (3.5-5.0); Alkaline Phosphatase 61 U/L (38-126); Aspartate Aminotransferase 35 IU/L (17-59); BUN Creatinine Ratio 17.5 (6-22); Bilirubin Total 0.8 mg/dL (0.2-1.3); Blood Urea Nitrogen 21 mg/dL (9-20); Carbon Dioxide 27 mmol/L (22-32); Chloride 103 mmol/L (98-107); Estimated Glomerular Filt Rate > 60 mL/min (>60); Globulin 2.4 g/dL (1.7-4.1); Glucose 104 mg/dL (70-99); HEMOLYSIS < 15 (0-50); Sodium 137 mmol/L (137-145); Total Protein 7.2 g/dL (6.3-8.2)
== END ==
PROVIDERS: PCP Internal Medicine; Referring Provider Internal Medicine; Visit Provider Internal Medicine
DX: R10.32 Left lower quadrant pain (principal)
CPT/HCPCS: 36415; 80053; 85027

== ENCOUNTER → 2025-01-29 07:40 | Outpatient (CLI) | payer MEDICARE, SELFPAY ==
--- NOTE | 2025-01-29 07:41 | DI.CT.S_ITS ---
PROCEDURE: CT ABDOMEN PELVIS W CON INDICATIONS: LLQ abd pain TECHNIQUE: After the administration of intravenous contrast, axial sections acquired from the lung bases to the pubic symphysis. Coronal and sagittal reformats were performed. For radiation dose reduction, the following was used: automated exposure control, adjustment of mA and/or kV according to patient size. COMPARISON: [facility], CT, CT KIDNEY URETER BLADDER (KUB), 10/26/2020, 9:44. FINDINGS: Image quality: Diagnostic. Lower Chest: No significant findings. ABDOMEN: Liver: No solid mass. Diffuse steatosis. Gallbladder: No radiopaque gallstones or wall thickening. Biliary ducts: No biliary dilation. Pancreas: No ductal dilation. Spleen: Size is within normal limits. Adrenal Glands: No adrenal nodules. Kidneys and Ureters: No hydronephrosis. No solid mass. No complex renal cystic lesion which requires follow up. Stomach and Bowel: Nonobstructive gas pattern. Nonspecific mild thickening of small bowel loops. Peritoneum: No abnormal intraperitoneal fluid. No free air. Ventral Wall: No significant ventral hernia. Abdominal Nodes: No retroperitoneal or mesenteric adenopathy by size criteria. Stable appearance of mildly numerous subcentimeter nodes compared to 2020. Vessels: Aorta and inferior vena cava are normal in size. PELVIS: Pelvic Organs: Unremarkable. Bladder: No bladder wall thickening, accounting for underdistention. Pelvic Nodes: No enlarged lymph nodes. Miscellaneous: No inguinal hernias are seen. Bones: No aggressive osseous abnormality. IMPRESSION: Nonspecific small bowel loop thickening which could be related to enteritis. Prominent steatosis. Dictated by: Teresa Rodarte M.D. on 01/29/2025 at 13:03 Approved by: Teresa Rodarte M.D. on 01/29/2025 at 13:05
== END ==
PROVIDERS: PCP Internal Medicine; Referring Provider Internal Medicine; Visit Provider Internal Medicine
DX: K76.0 Fatty (change of) liver, not elsewhere classified (principal); R10.32 Left lower quadrant pain
CPT/HCPCS: 74177; Q9967

== ENCOUNTER 2025-03-29 08:31 | Day surgery (SDC) | payer MEDICARE, SELFPAY ==
[2025-03-29 09:17] VITALS: BP 123/74; PULSE 70; RESP 16; TEMP 36.3; O2SAT 99
--- NOTE | 2025-03-29 09:26 | PM.HP.IH.1 ---
History of Present Illness History of Present Illness Date Patient Seen: 03/29/25 Chief complaint: Screening Colonoscopy Narrative: Screening with history of diverticulitis, resolved on CT scan. [facility] Medical History Acquired hypothyroidism Alopecia (~2011) Cervical radiculopathy due to degenerative joint disease of spine Chicken pox (~1964) Chronic low back pain Colon polyps Facial paresthesia History of colonic polyps Mixed hyperlipidemia Primary osteoarthritis involving multiple joints Surgical History Anesthesia History of appendectomy (~1969) History of knee surgery (~2021) History of tonsillectomy (~1963) Social History details: , no children; [email or web address] Smoking Status: Never smoker Meds Home Medications and Allergies Home Medications ?Medication ?Instructions ?Recorded ?Confirmed ?Type levothyroxine 75 mcg tablet 75 mcg PO DAILY #90 tabs 10/07/24 02/01/25 Rx pravastatin 10 mg tablet 10 mg PO BEDTIME #90 tabs 10/07/24 02/01/25 Rx sodium,potassium,mag sulfates 17.5 See Rx Instructions PO .COMPLEX 11/23/24 Rx gram-3.13 gram-1.6 gram oral soln #354 mL (Suprep Bowel Prep Kit) Allergies Allergy/AdvReac Type Severity Reaction Status Date / Time rosuvastatin AdvReac Intermediate arthralgias Verified 03/29/25 09:16 Exam Vital Signs (past 8 hours): - 03/29/25 09:17 Temperature 97.3 F L Pulse Rate 70 Respiratory Rate 16 Blood Pressure 123/74 Pulse Oximetry 99 Oxygen Delivery Method Room Air Oxygen Delivery Method Room Air Narrative Exam Narrative: Oropharynx free of lesions Chest clear to auscultation percussion Cardiac exam reveals no S3 or murmur Assessment & Plan Assessment & Plan narrative: History of diverticulitis and need for colorectal cancer screening. Risks, benefits, alternatives have been explained. Time-Based Coding :: [TOTAL MINUTES] spent with patient and on the chart (including review of chart, obtaining history, exam, reviewing outside data, placing orders, documenting exam and treatment plan, and counseling patient) on [DATE]. [employer] Document charge(s): No
[2025-03-29] MEDS: LACTATED RINGERS 1,000 ML 42 ML IV (09:28)
--- NOTE | 2025-03-29 09:28 | PM.OP.COLON ---
Operative Date/Time/Diagnoses Date of procedure: 03/29/25 Time of procedure: 10:19 Pre-op diagnosis: See indication and findings Post-op diagnosis: same Procedure & Clinicians Study performed: Colonoscopy Same procedure(s) as scheduled: No Indications: Screening and history of diverticulitis Surgeon: Halima West Anesthesia Type: Other Procedure Notes Procedure in detail: After informed consent was obtained the patient was placed in left lateral decubitus position. The video colonoscope was introduced in the rectum slowly advanced cecum. Preparation was good. On slow withdrawal mucosa was carefully examined. The scope was removed. The patient tolerated procedure well. Blood loss none Complications none Sedation mac Findings 1. Normal colonoscopy to cecum Patient have follow-up colonoscopy in 5 years. There is no evidence for active inflammation and only 1 or 2 diverticula were seen.
[2025-03-29 10:20] VITALS: BP 103/63; PULSE 63; RESP 15; TEMP 36.3; O2SAT 96
[2025-03-29 10:25] VITALS: BP 99/60; PULSE 59; RESP 14; O2SAT 96
[2025-03-29 10:36] VITALS: BP 114/64; PULSE 71; RESP 18; O2SAT 100
== END 2025-03-29 10:50 | disposition home or self-care (01) ==
PROVIDERS: PCP Internal Medicine; Referring Provider Internal Medicine; Visit Provider Internal Medicine Gastroenterology
PROC: 0DJD8ZZ Inspection of Lower Intestinal Tract, Via Natural or Artificial Opening Endoscopic (ICD-10-PCS; CPT 45378; principal; 2025-03-29 09:30)
DX: Z12.11 Encounter for screening for malignant neoplasm of colon (principal); Z86.0100 Personal history of colon polyps, unspecified; K57.30 Diverticulosis of large intestine without perforation or abscess without bleeding; E03.9 Hypothyroidism, unspecified
CPT/HCPCS: G0105; J2704